=== PATIENT | female | born 1930 | race Caucasian/White ===

== ENCOUNTER 2016-10-07 13:44 | Inpatient (IN) | payer OTHER ==
[~2016-10-07] VITALS: Ht 144.8 cm; Wt 46.4 kg
--- NOTE | 2016-10-07 13:53 | NUR ---
PT SENT TO LOBBY TO WAIT FOR AVAILABLE BED AT THIS TIME. ALERT AND ORIENTED WITHOUT S/S DISTRESS NOTED
--- NOTE | 2016-10-07 14:12 | NUR ---
REC'D PATIENT AWAKE AND ALERT, CONFUSED. USES W/C. APACHE. DAUGHTER AT THE BEDSIDE. PER DAUGHTER, PATIENT HAD A FALL IN [place]UL[place] AND HAD LEFT HIP REPLACED IN AUGUST, EVER SINCE THEN, PATIENT HAS BEEN C/O PAIN IN LEFT PELVIC REGION THAT RADIATES TO LEFT ABD QUADRANTS ONLY AFTER WIPING/CLEANING PATIENT WITH A PAIN OF 8/10. BOWEL SOUNDS HYPOACTIVE, NO S/SX OF INJURY OR TRAUMA NOTED. PER DAUGHTER, ALSO STATES THAT THE LEFT PELVIC REGION ALSO HAD A PROTRUDING NODULE THAT SPONTANEOUSLY DISAPPEARED RECENTLY. NO NODULE SEEN AT THIS TIME. BREATHING E/U, NO SOB NOTED, ON RA. WILL CONTINUE TO MONITOR.
--- NOTE | 2016-10-07 14:56 | NUR ---
LAB AT BEDSIDE.
--- NOTE | 2016-10-07 15:05 | NUR ---
PT STRAIGHT CATHED, WITH DAUGHTER AT BEDSSIDE. URINE SENT TO LAB,.
[2016-10-07 15:17] LABS: UA SPECIFIC GRAVITY 1.025 (1.005-1.035); microscopic required? YES; urine erythrocyte TRACE (NEGATIVE)
[2016-10-07 15:19] LABS: BASOPHIL % 0.6 % (0-2); PLATELET COUNT 312 x10^3mcL (130-400)
[2016-10-07 15:22] LABS: RED CELL DISTRIBUTION WIDTH 17.7 % (11.5-14.5)
[2016-10-07 15:29] LABS: CALCIUM 8.4 mg/dL (8.5-10.1); CARBON DIOXIDE 25.2 mmol/L (21-32); CHLORIDE SERUM 111 mmol/L (98-107); CREATININE SERUM 2.3 mg/dL (0.6-1.0); GLUCOSE SERUM 99 mg/dL (74-106); POTASSIUM SERUM 5.4 mmol/L (3.5-5.1); SODIUM SERUM 139 mmol/L (136-145)
[2016-10-07 15:33] LABS: ALKALINE PHOSPHATASE 96 U/L (46-116); ALT/SGPT 15 U/L (14-59); AMYLASE 106 U/L (25-115); AST/SGOT 14 U/L (15-37); BILIRUBIN TOTAL 0.2 mg/dL (0.20-1.00); LIPASE 186 IU/L (73-393); TOTAL PROTEIN, SERUM 6.7 g/dL (6.4-8.2)
[2016-10-07 15:36] LABS: ALBUMIN 2.7 g/dL (3.4-5.0)
--- NOTE | 2016-10-07 16:45 | NUR ---
PT HAS MULTIPLE AREAAS OF ECCHYMOSIS NOTED TO BILATERAL UPPER EXTREMITIES.
[2016-10-07] MEDS ORDERED: NAMENDA10 M2 (16:47)
[2016-10-07] MEDS ORDERED: LEXAPRO5 M1 (16:47)
[2016-10-07] MEDS ORDERED: ARICEPT5 MG (16:48)
[2016-10-07] MEDS ORDERED: SEROQUEL25 MG (16:48)
--- NOTE | 2016-10-07 16:55 | NUR ---
REPORT CALLED TO EMMA LEONARDO, HE WILL ASUME CARE PRIMARY RN ERNA ALMEIDA.
--- NOTE | 2016-10-07 17:03 | NUR ---
PT ARRIVED TO FLOOR FROM ED.
--- NOTE | 2016-10-07 17:24 | NUR ---
PT A/OX1, TELE 7, NSR 74 WITH ELEVATED T WAVE, DENIES CHEST PAIN, PACEMAKER, WEAK BUE AND BLE PULSES, NO EDEMA NOTED, LUNGS CTA ON RA, SAT 100% ON RA, DENIES SOB, BREATHING EVEN AND UNLABORED, BOWEL SOUNDS ACTIVE, DENIES N/V/D, ABLE TO VOID, GENERALIZED WEAKNESS, WHEELCHAIR AT HOME, ECCHYMOSIS BUE NOTED, DENIES ALL PAIN AT THIS TIME, IV TO RFA 22G, IV WNL, CALL LIGHT WITHIN REACH, DAUGHTER AT BEDSIDE, WILL CONTINUE TO MONITOR.
[2016-10-07 17:36] LABS: T3 TOTAL 0.62 ng/mL
[2016-10-07 17:45] VITALS: BP 179/65
[2016-10-07 17:46] LABS: FREE T4 0.83 ng/dL (0.76-1.46)
[2016-10-07 17:47] LABS: FREE THYROXINE INDEX 1.4 ug/dL (1.4-4.5); T4(THYROXINE) 3.9 ug/dL (4.7-13.3)
[2016-10-07 17:50] LABS: MAGNESIUM 2.1 mg/dL (1.8-2.4); PHOSPHOROUS 4.5 mg/dL (2.5-4.9)
[2016-10-07 17:51] LABS: CHOLESTEROL/HDL RATIO 2.1
--- NOTE | 2016-10-07 18:02 | NUR ---
PT DENIES SOB, DENIES PAIN, REQUESTING ORDER, DR. BONNER NOTIFIED OF DIET REQUEST AND BP, DAUGHTER AT BEDSIDE, CALL LIGHT WITHIN REACH, WILL CONTINUE TO MONITOR.
[2016-10-07 18:06] VITALS: BP 179/65
--- NOTE | 2016-10-07 19:20 | NUR ---
SEEN IN BED AWAKE, ALERT, ORIENTED X1, ABLE TO MAKE NEEDS KNOW AND ASKS SIMPLE QUESTIONS. ABLE TO TELL NAME, BIRTHDATE BUT DOES NOT KNOW WHERE SHE AT. NO SOB NOTED ON ROOM AIR. ON CCHO DIET. DENIES PAIN AT THIS TIME. IVF NS TO RFA AT 100ML/HR INFUSING WELL. SCD TO BLE INPLACED. PLAN OF CARE DISCUSSED. REINSTRUCTED HOW TO USE THE CALL LIGHT. FALL PRECAUTION MAINTAINED. SIDERAILS UP X3 WITH BED ALARM ON.
--- NOTE | 2016-10-07 20:00 | NUR ---
PATIENT CONFUSED, KEPT GETTING OUT OF BED. REORIENTATION PROVIDED. ASSISTED BACK TO BED. BED ALARM SET.
--- NOTE | 2016-10-07 21:30 | NUR ---
FOUND PATIENT STANDING AT BEDSIDE IV CATHETER AND TELEMETRY ON THE FLOOR. ASSISTED PATIENT TO GO BACK TO BED. PATIENT REFUSED TO HAVE TO GOWN CHANGED AT THIS TIME. STS THAT SHE WANTS TO GO HOME. ATTEMPTED TO PUT IV CATHETER X1 WITH 4 RN ASSISTED NOT SUCCESSFUL, PATIENT IS VERY COMBATIVE, KICKING, HITTING THE NURSES. CHARGE NURSE MADE AWARE. FALL PRECAUTION MAINTAINED. DOCTOR DIANA PAGED.
--- NOTE | 2016-10-07 21:50 | NUR ---
DOCTOR ORTIZ AT BEDSIDE TO DISCUSS WITH PATIENT. PATIENT STILL REFUSED IV ACCESS.
--- NOTE | 2016-10-07 22:00 | NUR ---
SPOKE TO PATIENT'S DAUGHTER MS. RAMOS VIA PHONE, CURRENT CONDITION UPDATED. PER PATIENT'S DAUGHTER STS THAT PATIENT HAS DEMENTIA AND WILL GET WORSE AT NIGHT, TO HAVE FAMILY AT BEDSIDE WILL MAKE IT WORSE SINCE THE PATIENT GOT ANGRY TO FAMILY FOR BRINGING HER HERE IN THE HOSPITAL. WILL CONTINUE TO ATTEMPT TO PUT IV ACCESS.
[2016-10-07 22:19] VITALS: BP 118/52
--- NOTE | 2016-10-07 23:00 | NUR ---
PATIENT ATTEMPTED TO GET OUT OF BED, ASSISTED BACK. REORIENTATION PROVIDED. REFUSED IV INSERTION AND TELEMETRY OFFERRED AT THIS TIME. FALL PRECAUTION MAINTAINED. BED ALARM SET.
--- NOTE | 2016-10-08 02:40 | NUR ---
ASLEEP AT THIS TIME. BED ALARM SET.
--- NOTE | 2016-10-08 05:00 | NUR ---
PATIENT AWAKE, CONFUSED BUT VERY PLEASANT AT THIS TIME. PATIENT AGREED TO HAVE IV ACCESS, IV CATHTER#22 INSERTED TO RFA WITH GOOD BLD RETURNED AND FLUSHED WELL. TELEMETRY#7 INPLACED, PACED. DENIES PAIN. BED ALARM ON.
[2016-10-08 06:02] VITALS: BP 125/57
[2016-10-08 07:04] LABS: BASOPHIL % 0.4 % (0-2); PLATELET COUNT 284 x10^3mcL (130-400)
--- NOTE | 2016-10-08 07:27 | NUR ---
PT RECEIVED DURING CHANGE OF SHIFT, A/OX1, TELE 7, PACED, DENIES CHEST PAIN, WEAK PULSES BUE AND BLE, NO EDEMA NOTED, LUNGS CTA ON RA, DENIES SOB, BREATHING EVEN AND UNLABORED, BOWEL SOUNDS ACTIVE, LBM 10/08/16, ABLE TO VOID, GENERALIZED WEAKNESS, USES WHEELCHAIR AT HOME, ECCHYMOSIS BUE, DENIES ALL PAIN AT THIS TIME, IV SALINE LOCKED, PATENT AND INTACT, CALL LIGHT WITHIN REACH, WILL CONTINUE TO MONITOR.
[2016-10-08 08:05] LABS: CALCIUM 8.3 mg/dL (8.5-10.1); CARBON DIOXIDE 23.1 mmol/L (21-32); CHLORIDE SERUM 110 mmol/L (98-107); CREATININE SERUM 1.9 mg/dL (0.6-1.0); GLUCOSE SERUM 88 mg/dL (74-106); POTASSIUM SERUM 4.4 mmol/L (3.5-5.1); SODIUM SERUM 138 mmol/L (136-145)
--- NOTE | 2016-10-08 08:36 | NUR ---
PT DENIES SOB, DENIES PAIN, REORIENTED AFTER ATTEMPTING TO GET OUT OF BED, CALL LIGHT WITHIN REACH, WILL CONTINUE TO MONITOR.
--- NOTE | 2016-10-08 09:04 | NUR ---
SHRUTI MATTHEWS AT BEDSIDE ASSISTING PT WITH ADL'S, WILL CONTINUE TO MONITOR.
--- NOTE | 2016-10-08 09:10 | NUR ---
DR. MTZ AND RESIDENTS MAKING ROUNDS, PLAN OF CARE DISCUSSED.
[2016-10-08 10:00] VITALS: BP 174/76
--- NOTE | 2016-10-08 10:08 | NUR ---
PT REMOVING TELE MONITOR, ATTEMPTING TO GET OUT OF BED, THREATENING RN, PT REORIENTED, PT HAD BM, STAVE SAW OPERATOR AT BEDSIDE CLEANING PT, CALL LIGHT WITHIN REACH, WILL CONTINUE TO MONITOR.
--- NOTE | 2016-10-08 10:22 | NUR ---
PT TRANSFERRED TO ROOM 217B PER CHARGE NURSE.
--- NOTE | 2016-10-08 11:14 | NUR ---
Initial Nutrition Assessment Dx: Abd Pain, Dehydration PMHx: Dementia (diagnosed 8 years ago), DM, pacemaker, HTN, depression PSHx: L hip replacement in [place] Labs: BG 88, BUN 39 H, Cr 1.9 H, H/H 8.3/25 L; (10/07) ALB 2.7 L, TBili 0.2 L, AST 14 L, A1C 5.3 Meds: Colace, NS IV, zofran Current Diet Order: (10/07 Dinner) Cardiac PO Intakes: None recorded yet Ht: 57", 4' 9". Wt: 102 lb, 46 kg. BMI: 22.1 kg/m2 (Normal) IBW: 93 lb, 42 kg. %IBW: 110%. UBW: Unable to obtain Age: 85 Y/O F Food Allergies: Unable to obtain Skin: Ecchymosis BUE; Intact. Tucker 15. Edema: None GI: Active bowel sounds. Last BM 10/08. Nursing Trigger: Appears underweight/malnourished. Pt found with abd pain possibly secondary to diverticulosis per doctor's notes. Per nursing notes, pt is hard of hearing on both ears, confused. Pt was sound asleep during RD visit, no family at bedside. RN reported pt eats good, no issues with food, has good appetite. Noted pt does appear slightly thin, covered fully in blankets, unable to fully assess physical appearance status. Problem with: N: None. V: None. D: None. C: None. Problems with: Chewing: None. Swallowing: None. Current Appetite: Good per RN Education: Not appropriate due to pt having dementia, confused Estimated Nutritional Needs Based CBW 102 lb, 46 kg. Energy: 6477-2176 kcal/day (25-30 kcal/kg for Maintenance) Protein: 46 gm/day (1 gm/kg for Maintenance) Fluids: 1380 ml/day (30 ml/kg for Maintenance) or per doctor Nutrition Diagnosis No nutrition problem at this time Intervention 1. Recommend Regular diet. 2. Recommend Theragran daily. Monitor/Evaluate Goal: PO intakes to meet >75% of estimated needs Monitor: PO intakes, tolerance to diet, labs, skin integrity, GI function F/U in 3-5 days as MODERATE risk (10/11-10/13)
--- NOTE | 2016-10-08 11:15 | NUR ---
1. Recommend Regular diet. 2. Recommend Theragran daily.
--- NOTE | 2016-10-08 11:25 | NUR ---
DENIES SOB, DENIES PAIN, CALL LIGHT WITHIN REACH, WILL CONTINUE TO MONITOR.
--- NOTE | 2016-10-08 12:03 | NUR ---
PT ASLEEP, NO INDICATION OF PAIN, BREATHING EVEN AND UNLABORED, CALL LIGHT WITHIN REACH, FAMILY AT BEDSIDE, WILL CONTINUE TO MONITOR.
--- NOTE | 2016-10-08 13:11 | NUR ---
PT CURRENTLY EATING LUNCH, DENIES SOB, DENIES PAIN, DAUGHTER AT BEDSIDE, STATED PT'S APPETITE IS GOOD, CALL LIGHT WITHIN REACH, WILL CONTINUE TO MONITOR.
[2016-10-08 13:50] VITALS: BP 149/48
--- NOTE | 2016-10-08 14:22 | NUR ---
PT DENIES SOB, DENIES PAIN, DAUGHTER AT BEDSIDE, CALL LIGHT WITHIN REACH, WILL CONTINUE TO MONITOR.
--- NOTE | 2016-10-08 15:00 | NUR ---
NEWS OPERATIONS MANAGER AT BEDSIDE ASSISTING PT WITH ADL'S, DAUGHTER AT BEDSIDE, DENIES SOB, DENIES PAIN, CALL LIGHT WITHIN REACH, WILL CONTINUE TO MONITOR.
--- NOTE | 2016-10-08 16:22 | NUR ---
PT ANXIOUS AND ATTEMPTING TO GET OUT OF BED, MEDICATED PER EMAR, DAUGHTER AT BEDSIDE, CALL LIGHT WITHIN REACH, WILL CONTINUE TO MONITOR.
--- NOTE | 2016-10-08 17:07 | NUR ---
PT AGITATED, SECOND DOSE OF ATIVAN GIVEN PER DR. BRUNO, FAMILY SIGNED CONSENT FOR POSSIBLE USE OF RESTRAINTS, PT'S FAMILY AT BEDSIDE, CALL LIGHT WITHIN REACH, WILL CONTINUE TO MONITOR.
[2016-10-08 18:07] VITALS: BP 172/62
--- NOTE | 2016-10-08 18:31 | NUR ---
PT EATING DINNER, FAMILY AT BEDSIDE, NO INDICATION OF PAIN, BREATHING EVEN AND UNLABORED, CALL LIGHT WITHIN REACH, WILL ENDORSE PT TO NEXT SHIFT.
--- NOTE | 2016-10-08 20:10 | NUR ---
SEEN IN BED AWAKE, CONFUSED, FAMILY AT BEDSIDE. PLEASANT AND COOPERATIVE AT THIS TIME. PACED ON TELE#7. NO S/S OF PAIN. PER DAUGHTER PATIENT HAD A GOOD APPETITE. NOTED WITH LOOSE BM, PERIANAL AREA CLEANED AND NEW ABSORBANT PAD REPLACED. IVF NS TO RFA AT 100ML/HR INFUSING WELL. REFUSED SCD. PLAN OF CARE DISCUSSED WITH PATIENT'S DAUGHTER. CALL LIGHT PLACED WITHIN EASY REACH. SIDERAILS UP X3 WITH BED ALARM SET. ROOM CLOSE BY NURSE STATION.
--- NOTE | 2016-10-08 20:13 | NUR ---
BEDTIME MEDS GIVEN, PATIENT TOLERATED WELL. CONFUSED BUT COOPERATIVE. DAUGHTER AT BEDSIDE VERY SUPPORTIVE.
--- NOTE | 2016-10-08 21:00 | NUR ---
LAYING IN BED WITH EYES CLOSE AT THIS TIME. NO ANY DISTRESS NOTED.
[2016-10-08 21:23] VITALS: BP 106/67
--- NOTE | 2016-10-08 22:30 | NUR ---
SEEN CONFUSED TRYING TO REMOVE GOWN AND TELEMETRY MUMBLING. NO ANY DISTRESS NOTED. NEW GOWN CHANGED, PERIAREA CHECKED, NEW ABSORBANT PADS REPLACED. REPOSITIONED. BED ALARM SET.
--- NOTE | 2016-10-09 00:20 | NUR ---
RESTING WITH EYES CLOSE.
--- NOTE | 2016-10-09 03:00 | NUR ---
RESTING WITH EYES CLOSE.
[2016-10-09 05:46] VITALS: BP 165/71
[2016-10-09 07:17] LABS: CALCIUM 8.3 mg/dL (8.5-10.1); CARBON DIOXIDE 21.8 mmol/L (21-32); CHLORIDE SERUM 113 mmol/L (98-107); CREATININE SERUM 1.8 mg/dL (0.6-1.0); GLUCOSE SERUM 79 mg/dL (74-106); POTASSIUM SERUM 4.4 mmol/L (3.5-5.1); SODIUM SERUM 142 mmol/L (136-145)
--- NOTE | 2016-10-09 08:00 | NUR ---
RECEIVED PATIENT SLEEPING, AROUSABLE. DEMENTIA AND GARBLED SPEAECH. TELE#7, PACED 100%; HR =70. NO RESP DISTRESS. O2 SAT 98% ON RA. ABD FLAT/SOFT. NO S/S OF ABD PAIN. NO N/V. LAST BM YESTERDAY. REFUSED BREAKFAST. IVF OF NS 100CC/HR INFULSING WELL. IV SITE TO RFA INTACT. GENERAL WEAKNESS. URINE INCONT. SCD TO BLE. CALL LIGHT IN REACH. DAUGHTER AT BED SIDE.
--- NOTE | 2016-10-09 09:30 | NUR ---
DR. MTZ AND MEDICAL TEAM MADE MORNING ROUND. PLAN OF CARE DISCUSSED WITH PATIENT'S DAUGHTER, INCLUDED POSSIBLE ERCP FOR THIS PATIENT. FAMILY AGREED WITH PLAN OF CARE.
[2016-10-09 10:36] VITALS: BP 175/64
--- NOTE | 2016-10-09 11:23 | NUR ---
DR. MALDONADO SAW PATIENT.
[2016-10-09 15:00] VITALS: BP 168/63
--- NOTE | 2016-10-09 16:12 | NUR ---
PT NOTES TIME [id number] CLEARED BY RN FOR P.T. TX. ATTEMPTED TO SEE PATIENT FOR P.T. TX. HOWEVER PATIENT FAMILY AT BEDSIDE DECLINED. REQUESTING PATIENT TO BE SEEN TOMORROW FOR P.T. TX D/T PATIENT AT THIS TIME FATIGUE & RESTING. ENCOURAGED PARTICIPATION, BUT DECLINED. RN IS AWARE. PRIMARY PHYSICAL THERAPIST AWARE. PVE
[2016-10-09 18:08] VITALS: BP 197/81
--- NOTE | 2016-10-09 18:46 | NUR ---
PATIENT SLEPT FROM MORNING TO AFTERNOON. AWAKE AND HAD DINNER BY ASSIST BY FAMILY. VOID INCONT OR USE BED HIGGINBOTHAM. NO BM THIS SHIFT. IVF OF NS 60CC/HR PER ORDER. NO S/S OF PAIN. ENDORSED CARE TO NOC NURSE.
--- NOTE | 2016-10-09 19:09 | NUR ---
REPORTED TO DR. BRUNO WITH PATIENT'S B/P 197/81; P = 82. ORDER OF HYDRALAZINE 10MG IVP AND METOPROLOL 12.5MG PO GIVEN. ENDORSED CARE TO NOC NURSE TO RECHECK V/S.
--- NOTE | 2016-10-09 20:00 | NUR ---
PT IS VERY DROWSY BUT ARROUSABLE. REPORTED AAOX1, TO SELF, WITH DEMENTIA. TELE 26 NSR (78). DIMINISHED LUNG SOUNDS ON RA. BOWEL SOUNDS ARE ACTIVE IN ALL 4 QUADS. PT HAS AN IV IN THE RAC INFUSING 70 ML/HR NS. BED IN LOWEST POSITION AND CALL LIGHT WITHIN REACH,
[2016-10-09 20:32] VITALS: BP 134/47
--- NOTE | 2016-10-09 20:41 | NUR ---
ASSISTED IN CHANGING THE PT AFTER BM. BP 134/47 (64) DR. ORTIZ MADE AWARE.
[2016-10-09 22:00] VITALS: BP 138/50
--- NOTE | 2016-10-10 02:12 | NUR ---
PT PULLED OUT HER IV. NEW IV STARTED IN LFA, 22 G. CURRENTLY INFUSING 60 ML/HR NS. WILL CONTINUE TO MONITOR.
--- NOTE | 2016-10-10 06:16 | NUR ---
PT IS RESTING COMFORTABLY IN BED. ALL NEEDS HAVE BEEN MET. THE BED IS IN THE LOWEST POSITION, 2X RAILS UP, CALL LIGHT WITHIN REACH. WILL ENDORSE TO MORNING SHIFT.
[2016-10-10 07:05] VITALS: BP 167/57
[2016-10-10 07:49] LABS: CALCIUM 7.9 mg/dL (8.5-10.1); CARBON DIOXIDE 19.6 mmol/L (21-32); CHLORIDE SERUM 115 mmol/L (98-107); CREATININE SERUM 1.9 mg/dL (0.6-1.0); GLUCOSE SERUM 68 mg/dL (74-106); POTASSIUM SERUM 4.5 mmol/L (3.5-5.1); SODIUM SERUM 145 mmol/L (136-145)
--- NOTE | 2016-10-10 08:00 | NUR ---
SLEEPING, AROUSABLE. DEMENTIA. CONFUSED. TELE#7 DUAL PACED MAKER, PACED 100%; HR = 70. NO RESP DISTRESS ON RA, BREATHING DIMINISHED, BUT CLEAR JAILENE. FINISHED 805 OF REGULAR DIET BREAKFAST. NO N/V. NO S/S OF ABD PAIN. HAD LARGE LOOSE BM THIS AM. BRUISE TO BUE'S, BUT NO OPENED WOUND SEEN. SCD TO BLE. IVF OF NS 60CC/HR INFUSING WELL TO LFA. CALL LIGHT IN REACH. BED ALARM ON, ALL SIDE RAILS UP.
--- NOTE | 2016-10-10 09:30 | NUR ---
DR. DELGADO AND MEDICAL TEAM MADE MORNING ROUND. PLAN OF CARE DISCUSSED WITH PATIENT, INCLUDED WITH D/C TO HOME TODAY. BUT PATIENT CONFUSED AND DROWSY. RESIDENT WOULD CALL PATIENT'S FAMILY.
[2016-10-10 10:15] VITALS: BP 136/45
--- NOTE | 2016-10-10 10:30 | NUR ---
HAD LARGE LOOSE BM. NO ABD PAIN.
[2016-10-10] MEDS ORDERED: LEXAPRO10 MG PO (13:19)
[2016-10-10] MEDS ORDERED: SERO100 PO (13:19)
[2016-10-10] MEDS ORDERED: MEMANTINE HCL10 MG PO (13:20)
[2016-10-10] MEDS ORDERED: ARI10 PO (13:21)
[2016-10-10] MEDS ORDERED: METOPROLOL TART25 M1 PO (13:21)
--- NOTE | 2016-10-10 13:30 | NUR ---
FINISHED 60% OF REGULAR DIET LUNCH. TOLERATED WELL.
[2016-10-10 14:01] VITALS: BP 132/60; BP 136/45
[2016-10-10 14:37] VITALS: BP 132/60
--- NOTE | 2016-10-10 15:38 | NUR ---
PT NOTES CLEARED BY RN FOR P.T. TX. FIRST ATTEMPT (1110), PATIENT DECLINED TX. PATIENT SON "ELDON" PRESENT AT BEDSIDE & ENCOURAGING PATIENT TO PARTICIPATE, BUT CONTINUES TO DECLINE. RN IS AWARE. SECOND ATTEMPT (1255), PATIENT SON "ELDON" STILL PRESENT AT BEDSIDE. PATIENT EDUCATED ON THE IMPORTANCE OF THERAPY & ENCOURAGED TO PARTICIPATE, BUT CONTINUES TO DECLINE DESPITE ENCOURAGEMENT GIVEN FROM SON & LIFE SCIENCE TEACHER. RN NOTIFIED. PRIMARY PHYSICAL THERAPIST AWARE. PVE(2)
== END 2016-10-10 17:00 | disposition home health service (06) | DRG 444 ==
LOC: ED 13:44 → DU 16:13
PROVIDERS: Emergency Medicine; Family Medicine; ADMIT Family Medicine
DX: K80.20 Calculus of gallbladder without cholecystitis without obstruction (principal); E43 Unspecified severe protein-calorie malnutrition; N17.0 Acute kidney failure with tubular necrosis; K57.90 Diverticulosis of intestine, part unspecified, without perforation or abscess without bleeding; E86.0 Dehydration; E87.5 Hyperkalemia; R91.1 Solitary pulmonary nodule; I10 Essential (primary) hypertension; F03.90 Unspecified dementia, unspecified severity, without behavioral disturbance, psychotic disturbance, mood disturbance, and anxiety; F32.9 Major depressive disorder, single episode, unspecified; Z68.22 Body mass index [BMI] 22.0-22.9, adult; Z96.642 Presence of left artificial hip joint; Z95.0 Presence of cardiac pacemaker
CPT/HCPCS: 82962; 83880; 84439; 94150; 97110-GP; J0360; J2270; J7030; Q0092

== ENCOUNTER 2016-12-24 19:01 | Inpatient (IN) | payer OTHER, MEDICAID ==
[~2016-12-24] VITALS: Ht 152.4 cm; Wt 46.5 kg
[~2016-12-24 19:01] MED LIST: ARI10 PO; ARICEPT5 MG; LEXAPRO10 MG PO; LEXAPRO5 M1; MEMANTINE HCL10 MG PO; METOPROLOL TART25 M1 PO; NAMENDA10 M2; SERO100 PO; SEROQUEL25 MG
--- NOTE | 2016-12-24 20:15 | NUR ---
PT PRESENTS TO THE ER TODAY FOR GENERALIZED WEAKNESS AND FLIUD IN LUNGS. PER PT DAUGHTER PT'S PC CALLED HER AND TOLD HER TO BRING HER MOTHER TO THE ER BECAUSE HER CHEST X-RAY FROM 12/17 SHOWED FLUID IN HER LUNGS. PT LUNGS HAVE BILATERAL CRACKLES AT THE BASES. RESPIRATIONS EVEN AND UNLABORED. PER DAUGHTER PT SEEMS TO BE SOB. PT COMPLAINS OF CHRONIC LEFT HIP PAIN. PT HAD SURGERY IN [place] AND HAS HAD PROBLEMS SINCE. PT DENEIS ANY OTHER SYMPTOMS. PT HAS HX OF DEMENTIA. A&O X 3. VITAL SIGNS STABLE. NO ACUTE DISTRESS NOTED.
--- NOTE | 2016-12-24 20:37 | NUR ---
DR. URIEB AT BEDSIDE FOR MSE.
[2016-12-24] MEDS ORDERED: SEROQUEL25 MG PO (20:42)
[2016-12-24] MEDS ORDERED: NAMENDA10 M2 PO (20:42)
[2016-12-24] MEDS ORDERED: NORVASC2.5 MG PO (20:43)
[2016-12-24] MEDS ORDERED: ARICEPT5 MG PO (20:43)
--- NOTE | 2016-12-24 21:13 | NUR ---
RADIOLOGY AT BEDSIDE FOR X-RAY.
--- NOTE | 2016-12-24 21:19 | NUR ---
LAB AT BEDSIDE FOR BLOOD DRAW
--- NOTE | 2016-12-24 21:21 | NUR ---
PT APPEARS TO BE RESTING COMFORTABLY. RESPIRATIONS EVEN AND UNLABORED. VITAL SIGNS STABLE. NO ACUTE DISTRESS NOTED. PT WAS PLACED ON BED HIGGINBOTHAM TO OBTAIN URINE SAMPLE.
[2016-12-24 21:54] LABS: PLATELET COUNT 384 x10^3mcL (130-400)
[2016-12-24 21:59] LABS: RED CELL DISTRIBUTION WIDTH 15.8 % (11.5-14.5)
[2016-12-24 22:07] LABS: ALKALINE PHOSPHATASE 177 U/L (46-116); ALT/SGPT 12 U/L (14-59); AST/SGOT 15 U/L (15-37); BILIRUBIN TOTAL 0.33 mg/dL (0.20-1.00); CALCIUM 8.6 mg/dL (8.5-10.1); CARBON DIOXIDE 18.8 mmol/L (21-32); CHLORIDE SERUM 106 mmol/L (98-107); GLUCOSE SERUM 168 mg/dL (74-106); POTASSIUM SERUM 4.6 mmol/L (3.5-5.1); SODIUM SERUM 137 mmol/L (136-145); TOTAL PROTEIN, SERUM 7.7 g/dL (6.4-8.2)
[2016-12-24 22:08] LABS: ALBUMIN 2.8 g/dL (3.4-5.0)
[2016-12-24 22:10] LABS: CREATININE SERUM 4.2 mg/dL (0.6-1.0)
--- NOTE | 2016-12-24 22:12 | NUR ---
RECIEVED CRITICAL RESULT FROM LAB. DR. URIBE MADE AWARE.
[2016-12-24 22:19] LABS: MONOCYTE 3 % (0-7); SEGMENTED NEUTROPHILS 88 % (37-75)
[2016-12-24 22:20] LABS: rbc morphology (normal/abnorm) ABNORMAL (NORMAL)
[2016-12-24 22:21] LABS: PLATELET MORPHOLOGY LARGE PLATELET SEEN
--- NOTE | 2016-12-24 22:33 | NUR ---
PT APPEARS TO BE RESTING COFORTABLY. VITAL SIGNS STABLE. RESPIRATIONS EVEN AND UNLABORED. NO ACUTE DISTRESS NOTED. DR. URIBE AT BEDSIDE DISCUSSING PLAN OF CARE.
--- NOTE | 2016-12-24 23:27 | NUR ---
REPORT GIVEN TO ADRIA ON MED/TELE
[2016-12-24 23:50] LABS: CHOLESTEROL/HDL RATIO 3.5; MAGNESIUM 2.2 mg/dL (1.8-2.4); PHOSPHOROUS 4.5 mg/dL (2.5-4.9)
--- NOTE | 2016-12-24 23:55 | NUR ---
REPORT GIVEN TO ABBEY ON MED/TELE.
[2016-12-24 23:56] LABS: FREE T4 1.03 ng/dL (0.76-1.46); T4(THYROXINE) 5.9 ug/dL (4.7-13.3)
[2016-12-25] VITALS (7 sets, daily range): BP systolic 136–169; BP diastolic 50–66
--- NOTE | 2016-12-25 00:28 | NUR ---
RECEIVED PATIENT FROM ED VIA GUERNEY, PATIENT A/O X 2, HX OF DEMENTIA, COMBATIVE AT TIMES, TELE # 24 SR, IV ACCESS TO LEFT HAND WNL, NO C/O PAIN AT THIS TIME, ORIENTED PATIENT TO ROOM AND SURROUNDINGS, BED IN LOW POSIITON, BED RAILS UP X 2, CALL LIGHT WITHIN REACH, WILL ENDORSE CARE TO PRIMARY NURSE CHRISTINA LEONARDO
--- NOTE | 2016-12-25 00:31 | NUR ---
PATIENT AWAKE, CONFUSED AND DISORIENTED H/O DEMENTIA, FAMILY MEMBERS AT BEDSIDE. TELE#24 SR 100% DUAL PACE. NO INDICATION OF CHEST DISCOMFORT IVTO LH INTACT AND INFUSING WELL. WITH ADMISSION ORDERS AND TO CARRY OUT. SKIN TEAR TO RT ARM MOBILE CRANE OPERATOR AND PHOTO TAKEN. WILL CONTINUE TO MONITOR. SITTER AT BEDSIDE,
[2016-12-25] MEDS ORDERED: FUROSEMIDE20 MG PO (00:57)
[2016-12-25 01:00] LABS: T3 TOTAL 0.4 ng/mL
[2016-12-25 03:08] LABS: IRON 30 ug/dL (50-170); TOTAL IRON BINDING CAPACITY 175 ug/dL (250-450)
--- NOTE | 2016-12-25 03:33 | NUR ---
STILL AWAKE NO SIGN OF DISTRESS NOTED, MUMBLING WORDS. SITTER AT BEDSIDE.
--- NOTE | 2016-12-25 05:25 | NUR ---
AWAKE MOST OF THE TIME CONFUSED AND DISORIENTED ,CHECKED AT INTERVALS FOR NEEDS AND SAFETY. SITTER AT BEDSIDE.
[2016-12-25 07:06] LABS: BASOPHIL % 0.5 % (0-2); PLATELET COUNT 304 x10^3mcL (130-400)
[2016-12-25 08:01] LABS: RED BLOOD CELLS 2.67 M/mm3 (4.10-5.10)
--- NOTE | 2016-12-25 08:20 | NUR ---
PT ALERT, NOT ORIENTED TO TIME, PLACE, SITUATION, OR SELF. BILATERAL CRACKLES AUSCULTATED THROUGHT LUNG SOUNDS, NO SOB NOTED. CHEST EXPANSION SYMMETRICAL, US OF LOBES PERFORMED EARLIER TODAY. BOWEL SOUNDS ACTIVE X4 THROUGHOUT. HRRR, PACEMAKER PLACEMENT IN UPPER RIGHT CHEST, NO REDNESS NOTED. ABDOMEN SOFT ROUND NONTENDER. SKIN CDI THROUGHOUT. SCD'S IN PLACE. BED IN LOWEST POSITION, CALL LIGHT WITHIN REACH, 2 RAILS UP.
--- NOTE | 2016-12-25 08:51 | NUR ---
TOOK AM MEDS WITHOUT DIFFICULTY, ASPIRATION PRECAUTIONS.
--- NOTE | 2016-12-25 12:24 | NUR ---
PT CURRENTLY COMBATIVE. SITTER AT BEDSIDE, WELL SON. REFUSING US OF BLADDER. WILL CONTACT MD ABOUT POSSIBLE RESTRAINTS. BED IN LOWEST POSITION, CALL LIGHT WITHIN REACH, 2 RAILS UP.
--- NOTE | 2016-12-25 12:26 | NUR ---
SPOKE WITH DR LIU, US ORDER TO BE DC'D PENDING ARRIVAL OF STORE SALES CONSULTANT.
--- NOTE | 2016-12-25 13:22 | NUR ---
DR STARKS IN TO SEE PATIENT.
--- NOTE | 2016-12-25 13:43 | NUR ---
PT ALERT, QUIET. IN NO APPARENT DISTRESS, REMAINS CONFUSED. FAMILY AT BEDSIDE. BED IN LOWEST POSITION, CALL LIGHT WITHIN REACH, 2 RAILS UP.
--- NOTE | 2016-12-25 14:12 | NUR ---
IVF DECREASED TO 10ML/HR.
--- NOTE | 2016-12-25 15:39 | NUR ---
STRAIGHT CATHED FOR UA COLLECTION, SENT TO LAB. CLEANED. OLD HEALED WOUND NOTED TO COCCYX AREA. SUREPREP SKIN PROTECTIVE BARRIER WIPE AND OPTIFOAM APPLIED. CURRENTLY TURNED ON TO LEFT SIDE.
--- NOTE | 2016-12-25 15:40 | NUR ---
UA AND URC ORDERED FOR PATIENT, STRAIGHT CATHED APPROXIMATELY 100ML OF CLOUDY FOUL SMELLING URINE. STERILE TECHNIQUE USED. SENT TO LAB. PATIENT TOLERATED PROCEDURE WELL. BED IN LOWEST POSITION, CALL LIGHT WITHIN REACH, 2 RAILS UP.
--- NOTE | 2016-12-25 16:03 | NUR ---
Initial Nutrition Assessment Dx: BL pleural effusion PMHx: Dementia PSHx: s/p pacemaker placement 8 years ago in [place] Hip repair - August 2016 [place] Hyste[place] Labs: (12/24) BH, BUN:54H, Cr:4.2H, LDL:108H, H/H:8.1/25L, BNP:739H Meds: Colace, Lasix, Metamucil, NS IV, Zofran Diet:Renal PO Intake:No PO intake recorded Ht: 60in, 5ft Wt: 102#, 46.52kg BMI: 20kg/m2 (normal weight) IBW: 100#,45kg %IBW: 102% UBW:pt's son's do not know Age:86 y/o female Food Allergies:NKFA Skin: skin tear to RUE Tucker:14 Edema:None GI: Last BM:12/24 Nursing trigger: admitted with potential risk diagnosis Pt admitted with Bilateral pleural effusions L>R, CKD stage 5,VMN BUN:Cr 54:4.2 and moderate pericardial effusion. Per progress note 12/25, pt did not sleep well overnight, CT of chest showed pericardial effusion (Dr. Berger consult), Chest x-ray showed pleural effusion (Dr. Delcid consult) and pt has history of CKD Stage 5 (, nephrology consult) . During visit, spoke to pt's son who reports pt with poor appetite but no c/o N/V/D/C. Pt has dentures but does not have any difficulty with chewing or swallowing. Per nurse, pt ate 50% of her breakfast and 30% of her lunch. Problem with: N: No V:No D: No C:No Problems with: Chewing:pt with dentures Swallowing: No Current appetite: Poor Recent wt change:unable to obtian %wt change:N/A Vitamin/Supplement use: pt takes vitamins but pt's son's do not know since they do not live with pt. Special diet at home:Regular, mostly chicken Physical activity: None Education: Provided pt's family with handout on CKD Stage 5 nutrition therapy. Pt's son said he would review handout later on. Estimated Nutritional Needs Based on actual body weight 46 kg Energy: 1380-1610kcal/d (30-35kcal/kg for ESRD non-dialysis) Protein: 28-37g/d (0.6-0.8g/kg for ESRD non-dialysis) Fluid:3424-8870 ml/d (1 ml/kcal) or per doctor Nutrition Diagnosis 1. Altered nutrition labs related to renal dysfunction as evidenced by elevated BUN:54, Cr:4.2 and CKD Stage 5. Intervention 1.Recommend change diet to low sodium, 40g protein diet due to pt with CKD stage 5 and elevated BNP level. 2. Recommend adding Suplena 1 can between meals (provides 425kcal and 10g pro) 3. If pt is to start HD, recommend renal diet. Monitor/Evaluate Goal: PO intake at least 75% of estimated needs Monitor: PO intake, Labs, GI function F/U in 3-5 days as moderate risk:12/28-
[2016-12-25 16:06] LABS: UA SPECIFIC GRAVITY 1.025 (1.005-1.035); microscopic required? YES; urine erythrocyte 2+ (NEGATIVE)
--- NOTE | 2016-12-25 17:52 | NUR ---
PT AWAKE, NOT ORIENTED TO SELF, SITUATION, TIME, OR PLACE. FAMILY AT BEDSIDE. IN NO APPARENT DISTRESS. ATE 50% OF DINNER. BED IN LOWEST POSITION, CALL LIGHT WITHIN REACH, 2 RAILS UP.
--- NOTE | 2016-12-25 17:55 | NUR ---
WAS UP IN CHAIR FOR DINNER.
--- NOTE | 2016-12-25 17:57 | NUR ---
RECEIVED CALL FROM JUAN MANUEL MO, NO NURSE CAN COME OUT TONIGHT TO MEET WITH DAUGHTER CATHERINE (WHO IS BEDSIDE). CATHERINE AND SPOKE ON PHONE TO SET UP APPOINTMENT FOR TOMORROW BETWEEN 1-1:30.
--- NOTE | 2016-12-25 19:08 | NUR ---
RECEIVED A BEDSIDE REPORT, SEEN ASLEEP, BREATHING EASY AND EVEN ON ROOM AIR. PATIENT'S DAUGHTER AT BEDSIDE. HX OF DEMENTIA. CURRENTLY DNR STATUS. IVF NS TKO AT 10ML/HR TO LFA IV INFUSING WELL. INCONTINENCE URINE. ON RENAL DIET. GEN BODY WEAKNESS. SITTER 1:1 AT BEDSIDE. SCD TO BLE INPLACED. FALL PRECAUTION MAINTAINED. WILL CONTINUE TO MONITOR.
--- NOTE | 2016-12-25 20:27 | NUR ---
AWAKE, CONFUSED, ATEMPTED TO PULL OUT IV, ARM BANDS, REORIENTATION PROVIDED BY MR AND SITTER AT BEDSIDE, PATIENT TRYING TO HIT AND SCRATCH NURSES. DOCTOR ALYSIA NOTIFIED.
--- NOTE | 2016-12-25 21:10 | NUR ---
BEDTIME MEDS AND ATIVAN CRUSHED AND MIXED WITH APPLE SAUCE GIVEN. NO ASPIRATION NOTED. WILL CONTINUE TO MONITOR.
--- NOTE | 2016-12-25 22:00 | NUR ---
RESTING WITH EYES CLOSE. NO ANY DISTRESS NOTED.
--- NOTE | 2016-12-26 06:11 | NUR ---
NO ANY DISTRESS THROUGHOUT SHIFT. VSS. ATIVAN PO GIVEN X1 FOR RESTLESSNESS; EFFECTIVE. PARTIAL BEDBATH DONE, NO BM. ALL DUE MEDS GIVEN. IVF NS TKO TO LT HAND INFUSING WELL.
[2016-12-26 06:29] LABS: CALCIUM 8.2 mg/dL (8.5-10.1); CARBON DIOXIDE 14.9 mmol/L (21-32); CHLORIDE SERUM 111 mmol/L (98-107); GLUCOSE SERUM 84 mg/dL (74-106); POTASSIUM SERUM 4.4 mmol/L (3.5-5.1); SODIUM SERUM 140 mmol/L (136-145)
[2016-12-26 06:30] VITALS: BP 167/60
[2016-12-26 06:30] LABS: BASOPHIL % 0.8 % (0-2); PLATELET COUNT 276 x10^3mcL (130-400); RED CELL DISTRIBUTION WIDTH 15.9 % (11.5-14.5)
--- NOTE | 2016-12-26 07:22 | NUR ---
PT SLEEPING. RESPIRATIONS NOTED. IN NO APPARENT DISTRESS. SITTER AT BEDSIDE. BED IN LOWEST POSITION, CALL LIGHT WITHIN REACH, 2 RAILS UP.
--- NOTE | 2016-12-26 07:25 | NUR ---
BEDSIDE HANDOFF, ASLEEP, RESP EVEN AND UNLABORED. TELE 24 100% PACED. IVF NS @ 10 TO LEFT HAND WNL.
--- NOTE | 2016-12-26 08:23 | NUR ---
CONTINUES TO SLEEP, HOLDING MEDS AND BREAKFAST UNTIL FULLY AWAKE.
--- NOTE | 2016-12-26 11:06 | NUR ---
PT ALERT, REMAINS CONFUSED. NO SOB OR SIGNS OF PAIN NOTED. IN NO APPARENT DISTRESS. BED IN LOWEST POSITION, CALL LIGHT WITHIN REACH, 2 RAILS UP.
--- NOTE | 2016-12-26 11:54 | NUR ---
DR STARKS IN TO SEE PATIENT.
--- NOTE | 2016-12-26 12:22 | NUR ---
AWAKE AND EATING LUNCH. ASPIRATION PRECAUTIONS IN PLACE.
--- NOTE | 2016-12-26 14:33 | NUR ---
INCONTINENT OF URINE AND STOOL. CLEANED AND REPOSITIONED.
--- NOTE | 2016-12-26 15:08 | NUR ---
CONTINUES TO SLEEP, RESP EVEN AND UNLABORED.
[2016-12-26] MEDS ORDERED: FER300 PO (15:28)
[2016-12-26] MEDS ORDERED: VITC PO (15:28)
--- NOTE | 2016-12-26 15:37 | NUR ---
SPOKE WITH JUAN MANUEL NURSE CR[facility]PIN [phone], SHE IS WAITING FOR MED LIST. SPOKE WITH DR SINGH AND HE IS WORKING ON IT. TRANSPORT TO BE [facility] AT 1800 IF BED HAS BEEN DELIVERED TO PATIENTS HOME. CRISPIN IS ATTEMPTING TO REACH DAUGHTER TO MAKE ARRANGEMENTS.
--- NOTE | 2016-12-26 15:43 | NUR ---
MED LIST GIVEN TO CRISPIN ZAMBRANO.
--- NOTE | 2016-12-26 16:15 | NUR ---
SPOKE WITH CRISPIN WITH [facility]UEL, 1830 [address] GUIDE WITH . BED, ETC TO BE DELIVERED BEFORE 1800. FAMILY BEDSIDE WITH CRISPIN.
[2016-12-26] MEDS ORDERED: LAC PO (16:21)
[2016-12-26] MEDS ORDERED: LEVAQUIN750 MG PO (16:21)
--- NOTE | 2016-12-26 16:43 | NUR ---
IV DC'D, CATHETER INTACT. FAMILY BEDSIDE.
[2016-12-26 16:55] VITALS: BP 167/60
--- NOTE | 2016-12-26 18:20 | NUR ---
CALLED [facility] FOR ETA, DISPATCHER REPORTS 10 MINUTES.
--- NOTE | 2016-12-26 18:56 | NUR ---
PT BEING TRANSFERED [facility]IA [facility] TO [facility]. DAUGHTER PRESENT.
--- NOTE | 2016-12-26 19:02 | NUR ---
OFF FLOOR VIA [facility], ALL BELONGINGS WITH PATIENT.
== END 2016-12-26 19:02 | disposition hospice, home (50) | DRG 189 ==
LOC: ED 19:01 → DU 22:34
PROVIDERS: Emergency Medicine; ADMIT Family Medicine Sports Medicine
DX: J96.00 Acute respiratory failure, unspecified whether with hypoxia or hypercapnia (principal); N17.0 Acute kidney failure with tubular necrosis; E43 Unspecified severe protein-calorie malnutrition; J69.0 Pneumonitis due to inhalation of food and vomit; I50.43 Acute on chronic combined systolic (congestive) and diastolic (congestive) heart failure; N39.0 Urinary tract infection, site not specified; I13.2 Hypertensive heart and chronic kidney disease with heart failure and with stage 5 chronic kidney disease, or end stage renal disease; N18.5 Chronic kidney disease, stage 5; N26.9 Renal sclerosis, unspecified; K57.90 Diverticulosis of intestine, part unspecified, without perforation or abscess without bleeding; D63.8 Anemia in other chronic diseases classified elsewhere; F32.9 Major depressive disorder, single episode, unspecified; F02.80 Dementia in other diseases classified elsewhere, unspecified severity, without behavioral disturbance, psychotic disturbance, mood disturbance, and anxiety; G30.9 Alzheimer's disease, unspecified; Z68.20 Body mass index [BMI] 20.0-20.9, adult; Z95.0 Presence of cardiac pacemaker
CPT/HCPCS: 36600; 83880; 84439; J0696; J1940; J7030; J7620; Q0092